=== PATIENT | male | born 1930 | race Caucasian/White ===

== ENCOUNTER 2019-06-25 09:43 | Inpatient (IN) | payer MEDICARE, OTHER ==
[~2019-06-25] VITALS: Ht 182.9 cm; Wt 69.8 kg
--- NOTE | 2019-06-25 10:18 | NUR ---
PT CAME IN CO OF LEFT SIDEDED WEAKNESS. STATES THAT LAST NIGHT HE WAS WALKING AROUND WITH HIS FAMILY AND WAS HAVING NO PROBLEMS. THE SON SAW HIM LAST AT 2030 LAST NIGHT AND EVERYTHING WAS FINE. PT WOKE UP THIS MORNING WITH LEFT SIDED NUMBNESS AND WEAKNESS. LAST KNOW NORMAL TIME WAS 2030 LAST NIGHT. BP WAS 205/125. PT HAS HX OF HTN. NO PREVIOUS STROKES. CODE NEURO CALLED. 2 IVS STARTED. EKG DONE. BLOOW DRAWN. PT IS IN CT NOW AND WILL BE TRANSFERED TO TRAUMA ROOM 4 UPON RETURN
--- NOTE | 2019-06-25 10:21 | NUR ---
1011 code neuro paged [phone] austin spoke with dr moreira
[2019-06-25 10:28] LABS: BASOPHILS # (AUTO) 0.05 x10^3/uL (0-0.1); BASOPHILS % (AUTO) 1 % (0-1); EOSINOPHILS % (AUTO) 4 % (1-7); LYMPHOCYTES # (AUTO) 2.52 x10^3/uL (1-3.4); LYMPHOCYTES % (AUTO) 34 % (22-44); MD NO; MEAN CORPUSCULAR HEMOGLOBIN 30.9 pg (27.5-34.5); MEAN CORPUSCULAR HGB CONC 33.8 g/dL (33.2-36.2); MEAN CORPUSCULAR VOLUME 91.5 fL (81-97); MEAN PLATELET VOLUME 6.4 fL (7.4-10.4); MONOCYTES # (AUTO) 0.43 x10^3/uL (0.2-0.8); MONOCYTES % (AUTO) 6 % (2-9); NEUTROPHILS % (AUTO) 56 % (42-75); PLATELET COUNT 242 x10^3/uL (130-400); RED BLOOD COUNT 4.79 x10^6/uL (4.38-5.82); RED CELL DISTRIBUTION WIDTH 14.6 % (9.4-14.8)
--- NOTE | 2019-06-25 10:28 | NUR ---
REPORT GIVEN TO GIANNA MINAYA
[2019-06-25 10:37] LABS: INTERNATIONAL NORMALIZED RATIO 1.02 (0.93-1.1); PROTHROMBIN TIME 10.8 Seconds (9.6-11.5)
[2019-06-25] MEDS ORDERED: [UNRECOGNIZED DRUG - OTHER] PO (10:37)
[2019-06-25] MEDS ORDERED: IRBE1TAB37 PO (10:37)
[2019-06-25] MEDS ORDERED: AMLO-150 PO (10:37)
[2019-06-25] MEDS ORDERED: METF1000 PO (10:37)
[2019-06-25] MEDS ORDERED: LEVO137T3 PO (10:37)
--- NOTE | 2019-06-25 10:38 | NUR ---
PER NICARDIPINE TO BE STARTED TO ACHIEVE A MAP OF 103. NICADIPINE STARTED AT 2.5 MG/HR
[2019-06-25] MEDS ORDERED: OMNIPAQUE 350 MG/ML, 100ML BOTTLE ONE (10:41)
--- NOTE | 2019-06-25 11:00 | NUR ---
AT THIS TIME NICARDIPINE IS SET TO 2 MG/HR PER MD ORDER. PTS NEURO SYMPTOMS APPEAR TO BE RESOLVING CONDINATION WITH LEFT ARM AND LEG ARE NOW EQUAL BILATERALLY.
--- NOTE | 2019-06-25 11:41 | NUR ---
PT AWAKE, ALERT AND ORIENTED IN BED AT THIS TIME. NICADIPINE DRIP WAS D/C'D PER DR CAPELLAN. POC IS TO ADDRESS BP WITH IV PUSHES AND PO MEDS IF NEEDED. STILL AWAITING NEUROLOGIST CONSULT.
[2019-06-25] MEDS ORDERED: POTASSIUM CHLORIDE 20 MEQ TAB.ER.PRT PO ONE (12:00)
[2019-06-25] MEDS ORDERED: ASPIRIN 81 MG TABLET EC PO ONE (12:00)
[2019-06-25] MEDS ORDERED: ENOXAPARIN 40 MG/0.4 ML SQ SCH (12:00)
[2019-06-25] MEDS ORDERED: SODIUM CHLORIDE 0.9% 1,000 ML IV SCH (12:00)
[2019-06-25] MEDS ORDERED: hydrALAzine 20 MG/ML, 1ML IV PRN (12:00)
--- NOTE | 2019-06-25 12:01 | NUR ---
THROUGHPUT: TRANSFER DECLINED BY NINFA/RTC (NON-CONTRACTED), [facility] & [facility]; PSC FORM FAXED TO [facility], EMAIL SENT TO [facility].
--- NOTE | 2019-06-25 12:10 | NUR ---
STILL AWAITING NEUROLOGIST VINCE ASSESS PT AT THIS TIME.
[2019-06-25 12:44] LABS: FREE T4 (FREE THYROXINE) 0.49 ng/dL (0.76-1.46)
[2019-06-25] MEDS ORDERED: hydrALAzine 20 MG/ML, 1ML ONE (13:08)
[2019-06-25] MEDS ORDERED: POTASSIUM CHLORIDE 20 MEQ TAB.ER.PRT ONE (13:15)
[2019-06-25] MEDS ORDERED: ASPIRIN 81 MG TABLET EC ONE (13:18)
--- NOTE | 2019-06-25 13:21 | NUR ---
PT WITH SYSTOLIC BP OF 181 AT THIS TIME. MEDICATED WITH 10 MG OF HYDRALAZINE PER MD ORDER. PT STATES HE FEELS FINE. MINOR DISCORDINATION STILL PRESENT WHEN ATTEMPTING TO TOUCH LEFT FINGER TO NOSE. NONE PRESENT IN LOWER EXTREMITIES.
--- NOTE | 2019-06-25 13:53 | NUR ---
REPORT RECEIVED FROM REI KATZ.
--- NOTE | 2019-06-25 13:53 | NUR ---
MEAL TRAY PROVIDED AT THIS TIME.
--- NOTE | 2019-06-25 14:57 | NUR ---
REPORT GIVEN TO DIANE KATZ. ALL QUESTIONS ANSWERED.
[2019-06-25 15:43] VITALS: BP 191/96
[2019-06-25] MEDS: SODIUM CHLORIDE 0.9% 1,000 ML IV SCH ×2 (16:10→21:27)
[2019-06-25 16:22] VITALS: BP 186/104
[2019-06-25] MEDS ORDERED: ENOXAPARIN 30 MG/0.3 ML SQ SCH (16:30)
[2019-06-25] MEDS: AMLODIPINE 5 MG TABLET PO SCH (17:01)
[2019-06-25 20:36] VITALS: BP 151/86
[2019-06-25] MEDS: ATORVASTATIN 80 MG TABLET PO SCH (21:26)
[2019-06-25] MEDS: ACETAMINOPHEN 325 MG TABLET PO PRN (21:26)
[2019-06-26 00:33] VITALS: BP 145/80
[2019-06-26] MEDS: SODIUM CHLORIDE 0.9% 1,000 ML IV SCH (05:44)
[2019-06-26] MEDS: ASPIRIN 81 MG TABLET EC PO SCH (05:44)
[2019-06-26] MEDS ORDERED: LEVOTHYROXINE 137 MCG TABLET PO SCH (06:00)
[2019-06-26 06:35] LABS: BASOPHILS # (AUTO) 0.04 x10^3/uL (0-0.1); BASOPHILS % (AUTO) 1 % (0-1); EOSINOPHILS # (AUTO) 0.33 x10^3/uL (0-0.4); EOSINOPHILS % (AUTO) 5 % (1-7); LYMPHOCYTES # (AUTO) 2.19 x10^3/uL (1-3.4); LYMPHOCYTES % (AUTO) 34 % (22-44); MD NO; MEAN CORPUSCULAR HGB CONC 33.9 g/dL (33.2-36.2); MEAN CORPUSCULAR VOLUME 91.4 fL (81-97); MEAN PLATELET VOLUME 6.6 fL (7.4-10.4); MONOCYTES # (AUTO) 0.46 x10^3/uL (0.2-0.8); MONOCYTES % (AUTO) 7 % (2-9); NEUTROPHILS # (AUTO) 3.41 x10^3/uL (1.8-6.8); NEUTROPHILS % (AUTO) 53 % (42-75); PLATELET COUNT 211 x10^3/uL (130-400); RED BLOOD COUNT 4.37 x10^6/uL (4.38-5.82)
[2019-06-26 06:39] LABS: ANION GAP 8 mmol/L (5-15); CALCIUM 8.1 mg/dL (8.5-10.1); CHLORIDE 106 mmol/L (98-107)
[2019-06-26 06:41] LABS: CHOL/HDL RATIO 4.4; CHOLESTEROL, TOTAL 195 mg/dL (140-239); CREATININE 1.34 mg/dL (0.7-1.3); HDL CHOL % 23 % (26-37); HDL CHOLESTEROL (DIRECT) 44 mg/dL (40-60); LDL CHOLESTEROL,CALCULATED 102 mg/dL (54-169); LDL/HDL RATIO 2.3 (0.5-3.0); TRIGLYCERIDES 244 mg/dL (50-200); VLDL CHOLESTEROL 49 mg/dL (0-25)
[2019-06-26 06:46] VITALS: BP 160/84
[2019-06-26] MEDS ORDERED: POTASSIUM CHLORIDE 20 MEQ TAB.ER.PRT PO ONE (08:30)
[2019-06-26] MEDS: AMLODIPINE 5 MG TABLET PO SCH (08:40)
[2019-06-26 12:17] VITALS: BP 175/89
[2019-06-26] MEDS ORDERED: GADOTERATE 10 MMOL/20 ML SYR ONE (14:07)
[2019-06-26 14:31] VITALS: BP 169/82
[2019-06-26] MEDS: ENOXAPARIN 40 MG/0.4 ML SQ SCH (16:04)
[2019-06-26 19:05] VITALS: BP 173/93
[2019-06-26] MEDS: ATORVASTATIN 80 MG TABLET PO SCH (20:32)
[2019-06-26] MEDS: ACETAMINOPHEN 325 MG TABLET PO PRN (20:40)
[2019-06-27 00:30] VITALS: BP 148/86
[2019-06-27 05:46] LABS: BASOPHILS # (AUTO) 0.03 x10^3/uL (0-0.1); BASOPHILS % (AUTO) 1 % (0-1); EOSINOPHILS # (AUTO) 0.32 x10^3/uL (0-0.4); EOSINOPHILS % (AUTO) 5 % (1-7); LYMPHOCYTES # (AUTO) 2.11 x10^3/uL (1-3.4); LYMPHOCYTES % (AUTO) 32 % (22-44); MD NO; MEAN CORPUSCULAR HEMOGLOBIN 30.9 pg (27.5-34.5); MEAN CORPUSCULAR HGB CONC 33.5 g/dL (33.2-36.2); MEAN CORPUSCULAR VOLUME 92.3 fL (81-97); MEAN PLATELET VOLUME 6.6 fL (7.4-10.4); MONOCYTES # (AUTO) 0.44 x10^3/uL (0.2-0.8); MONOCYTES % (AUTO) 7 % (2-9); NEUTROPHILS # (AUTO) 3.78 x10^3/uL (1.8-6.8); NEUTROPHILS % (AUTO) 57 % (42-75); PLATELET COUNT 217 x10^3/uL (130-400); RED BLOOD COUNT 4.59 x10^6/uL (4.38-5.82); RED CELL DISTRIBUTION WIDTH 14.9 % (9.4-14.8)
[2019-06-27 05:59] LABS: ANION GAP 6 mmol/L (5-15); CALCIUM 8.2 mg/dL (8.5-10.1); CHLORIDE 107 mmol/L (98-107)
[2019-06-27] MEDS: ASPIRIN 81 MG TABLET EC PO SCH (06:01)
[2019-06-27] MEDS: LEVOTHYROXINE 75 MCG TABLET PO SCH (06:01)
[2019-06-27 07:02] VITALS: BP 171/84
[2019-06-27] MEDS: AMLODIPINE 5 MG TABLET PO SCH (09:18)
[2019-06-27 13:10] VITALS: BP 161/82
[2019-06-27] MEDS: ENOXAPARIN 40 MG/0.4 ML SQ SCH (16:50)
[2019-06-27 18:27] VITALS: BP 165/83
[2019-06-27] MEDS ORDERED: hydrALAzine 20 MG/ML, 1ML IV PRN (19:54)
[2019-06-27] MEDS: ATORVASTATIN 40 MG TABLET PO SCH (20:11)
[2019-06-28 01:18] VITALS: BP 129/87
[2019-06-28] MEDS: LEVOTHYROXINE 75 MCG TABLET PO SCH (04:42)
[2019-06-28 06:29] LABS: ANION GAP 7 mmol/L (5-15); CALCIUM 8.5 mg/dL (8.5-10.1); CHLORIDE 107 mmol/L (98-107); CREATININE 1.19 mg/dL (0.7-1.3)
[2019-06-28 06:43] VITALS: BP 169/89
[2019-06-28] MEDS ORDERED: POTASSIUM CHLORIDE 20 MEQ PACKET PO ONE (07:00)
[2019-06-28] MEDS: AMLODIPINE 5 MG TABLET PO SCH (08:43)
[2019-06-28] MEDS: ASPIRIN 325 MG TABLET EC PO SCH (08:44)
[2019-06-28] MEDS ORDERED: ENALAPRIL 2.5MG TABLET PO SCH (09:00)
[2019-06-28] MEDS ORDERED: ASPI-650 PO (10:43)
[2019-06-28] MEDS ORDERED: ATOR40TA78 PO (10:43)
[2019-06-28] MEDS ORDERED: LEVO75TA PO (10:43)
[2019-06-28] MEDS ORDERED: AMLO-150 PO (10:43)
[2019-06-28] MEDS ORDERED: POTA20PA25 PO (10:44)
[2019-06-28 13:38] VITALS: BP 158/72
[2019-06-28] MEDS: ENOXAPARIN 40 MG/0.4 ML SQ SCH (16:42)
[2019-06-28 18:45] VITALS: BP 156/83
[2019-06-28] MEDS: ATORVASTATIN 40 MG TABLET PO SCH (20:43)
[2019-06-29 00:34] VITALS: BP 148/81
[2019-06-29 01:25] VITALS: BP 142/76
[2019-06-29] MEDS: LEVOTHYROXINE 75 MCG TABLET PO SCH (05:29)
[2019-06-29 06:16] LABS: ANION GAP 6 mmol/L (5-15); CALCIUM 8.7 mg/dL (8.5-10.1); CHLORIDE 107 mmol/L (98-107); CREATININE 1.36 mg/dL (0.7-1.3)
[2019-06-29 07:42] VITALS: BP 168/91
[2019-06-29 08:32] VITALS: BP 139/96
[2019-06-29] MEDS ORDERED: HYDROCHLOROTHIAZIDE 12.5 MG CAPSULE PO SCH (09:00)
[2019-06-29] MEDS ORDERED: IRBESARTAN 150 MG TABLET PO SCH ×2 (09:00)
[2019-06-29] MEDS: ASPIRIN 325 MG TABLET EC PO SCH (09:17)
[2019-06-29] MEDS: AMLODIPINE 5 MG TABLET PO SCH (09:17)
[2019-06-29 12:10] VITALS: BP 134/84
== END 2019-06-29 13:07 | DRG 64 ==
LOC: ED 11:33 → EDIP 11:41 → 4WST 15:28
PROVIDERS: ADMIT Internal Medicine Infectious Disease; ATTEND Internal Medicine
DX: I63.321 Cerebral infarction due to thrombosis of right anterior cerebral artery (principal); N17.0 Acute kidney failure with tubular necrosis; G81.94 Hemiplegia, unspecified affecting left nondominant side; I35.1 Nonrheumatic aortic (valve) insufficiency; I65.21 Occlusion and stenosis of right carotid artery; E11.9 Type 2 diabetes mellitus without complications; E03.9 Hypothyroidism, unspecified; E87.6 Hypokalemia; R29.702 NIHSS score 2; I11.9 Hypertensive heart disease without heart failure; E78.5 Hyperlipidemia, unspecified; Z72.89 Other problems related to lifestyle; Z82.3 Family history of stroke; Z79.899 Other long term (current) drug therapy
CPT/HCPCS: 36415; 70450; 70496; 70498; 70553; 80047; 80048; 80061; 82962; 83036; 83880; 84439; 84443; 85025; 85610; 85730; 93005; 93306; 96374; 96375; G0378; J1650; J7060; Q9967; 92523-GN; A9575; J0360; J7030

== ENCOUNTER 2020-11-09 12:42 | Emergency (ER) | payer MEDICARE ==
[~2020-11-09] VITALS: Ht 182.9 cm; Wt 76.1 kg
[~2020-11-09 12:42] MED LIST: AMLO-150 PO; ASPI325T20 PO; ATOR40TA78 PO; CLOP75TA PO; IRBE1TAB37 PO; LEVO100T5 PO; LEVO137T3 PO; LEVO75TA PO; METF1000 PO; POTA20PA25 PO; [UNRECOGNIZED DRUG - OTHER] PO
[2020-11-09 12:47] VITALS: BP 171/101
[2020-11-09 14:49] LABS: BASOPHILS % (AUTO) 1 % (0-1); EOSINOPHILS % (AUTO) 4 % (1-7); LYMPHOCYTES % (AUTO) 29 % (22-44); MEAN CORPUSCULAR HEMOGLOBIN 30.9 pg (27.5-34.5); MEAN CORPUSCULAR HGB CONC 34.6 g/dL (33.2-36.2); MEAN PLATELET VOLUME 6.7 fL (7.4-10.4); MONOCYTES % (AUTO) 7 % (2-9); NEUTROPHILS % (AUTO) 60 % (42-75); PLATELET COUNT 252 x10^3/uL (130-400); RED BLOOD COUNT 4.67 x10^6/uL (4.38-5.82); RED CELL DISTRIBUTION WIDTH 13.9 % (9.4-14.8)
[2020-11-09 14:58] LABS: ALANINE AMINOTRANSFERASE 20 U/L (12-78); ALBUMIN 3.3 g/dL (3.4-5.0); ANION GAP 8 mmol/L (5-15); CALCIUM 8.7 mg/dL (8.5-10.1); CHLORIDE 107 mmol/L (98-107); CREATININE 1.48 mg/dL (0.7-1.3)
[2020-11-09 15:03] LABS: ALKALINE PHOSPHATASE 72 U/L (45-117); BILIRUBIN,TOTAL 0.7 mg/dL (0.2-1.0); TOTAL PROTEIN 7.1 g/dL (6.4-8.2); TROPONIN I < 0.015 ng/mL (0.000-0.045)
--- NOTE | 2020-11-09 16:05 | NUR ---
patient states he is going to go to [facility]
--- NOTE | 2020-11-09 16:59 | NUR ---
NAX1
--- NOTE | 2020-11-09 17:31 | NUR ---
[id number]
== END 2020-11-09 17:33 | disposition left against medical advice (07) ==
LOC: ED 16:00
DX: R53.1 Weakness (principal); R51.9 Headache, unspecified; R06.89 Other abnormalities of breathing; R94.31 Abnormal electrocardiogram [ECG] [EKG]; W18.30XA Fall on same level, unspecified, initial encounter; Y93.89 Activity, other specified; Y92.89 Other specified places as the place of occurrence of the external cause; Y99.8 Other external cause status
CPT/HCPCS: 36415; 70450; 71045; 80053; 84484; 85025; 93005; 99285